=== PATIENT | female | born 1955 | race Caucasian/White ===

== ENCOUNTER 2018-07-30 09:01 | Inpatient (IN) | payer OTHER ==
[~2018-07-30] VITALS: Ht 162.6 cm; Wt 80.4 kg
[~2018-07-30 09:01] MED LIST: DULERA 200 MCG/13 GM INH; MONTELUKAST SOD10 M1 PO; TRAMADOL HCL50 M1 PO
[2018-07-30 11:45] LABS: ABSOLUTE BASOPHIL COUNT 0.2 /CUMM (0.0-0.2); ABSOLUTE EOSINOPHIL COUNT 0 /CUMM (0.0-0.7); ABSOLUTE GRANULOCYTE CT 11.3 /CUMM (1.4-6.5); ABSOLUTE LYMPH COUNT 1.9 /CUMM (1.2-3.4); ABSOLUTE MONOCYTE COUNT 1.1 /CUMM (0.10-0.60); BASOPHIL % 1.4 % (0.0-2.0); EOSINOPHIL % 0.3 % (0-5); GRANULOCYTE % 77.5 % (42.2-75.2); HEMATOCRIT 41.8 % (37-47); MEAN CORPUSCULAR HGB 29.4 PG (27.0-31.0); MEAN CORPUSCULAR VOLUME 84.1 FL (81.0-99.0); MEAN PLATELET VOLUME 8.1 FL (7.4-10.4); PLATELET COUNT 266 /CUMM (130-400); RBC DISTRIBUTION WIDTH 13.3 % (11.5-14.5); RED BLOOD CELL CT 4.97 /CUMM (4.20-5.40); WHITE BLOOD CELL COUNT 14.6 /CUMM (4.8-10.8)
--- NOTE | 2018-07-30 12:27 | ED GI/GU/ABDOMINAL COMPLAINT ---
History of Present Illness General Chief Complaint: Abdominal Pain/Flank Pain Stated Complaint: ABD PAIN X3-4 DAYS Source: patient Exam Limitations: no limitations Vital Signs & Intake/Output Vital Signs & Intake/Output ED Intake and Output 08/02 0000 08/01 1200 Intake Total 820 1120 Output Total 400 Balance 820 720 Intake, IV 200 1000 Intake, Oral 620 120 Number 1 Bowel Movements Output, Urine 400 Patient 177 lb Weight Allergies Coded Allergies: No Known Drug Allergies (11/11/16) Reconcile Medications Budesonide/Formoterol Fumarate (Symbicort 160-4.5 Mcg Inhaler) 160 MCG-4.5 MCG/ ACTUATION HFA.AER.AD 2 PUF INH BID BREATHING PROBLEMS (Reported) Calcium (Elemental-Fr Calcarb) (Calcium) 600 MG CALCIUM (1,500 MG) TABLET 1 TAB PO DAILY SUPPLEMENT (Reported) Cetirizine HCl (Zyrtec) 10 MG TABLET 1 TAB PO DAILY ALLERGIES (Reported) Cholecalciferol (Vitamin D3) 1,000 UNIT TABLET 1 TAB PO DAILY VITAMIN SUPPORT (Reported) Ciprofloxacin HCl (Cipro) 500 MG TABLET 1 TAB PO BID acute diverticulitis Metronidazole (Flagyl) 500 MG TABLET 1 TAB PO BID acute diverticulitis do not drink alcohol while taking this medication Montelukast Sodium 10 MG TABLET 1 TAB PO DAILY ASTHMA (Reported) Triage Note: PT TO ED C/O LOWER ABD PAIN X3 DAYS. STATES THAT IT IS TO HER NAVEL AND WRAPS TO BOTH SIDES. DENIES ANY N/V. DENIES ANY CP/SOB. HAS A HX OF DIVERTICULTIS, BUT DOES NOT FEEL THE SAME SHE STATES. HAS SOME LOWER BACK PAIN, DENIES ANY URINARY S/S Triage Nurses Notes Reviewed? yes ? N Is pt currently ? No Onset: Gradual Duration: day(s): (4), constant, changing over time, continues in ED, getting worse Quality/Severity: sharpness, severe Severity Numbers: 8 Location: generalized abdomen Activities at Onset: none HPI: Patient presents for evaluation of abdominal pain over the past 3-4 days. Patient awoke with pain on Monday and took ibuprofen with some improvement. Beginning last night the patient began experiencing fever or chills and worsening of her abdominal pain. The pain also worsens with coughing and with flatus. Patient denies associated vomiting, diarrhea, dysuria or constipation. Past History Travel History Traveled to [place] past 21 day No Medical History Any Pertinent Medical History? see below for history Neurological: NONE EENT: NONE Cardiovascular: NONE Respiratory: asthma Gastrointestinal: diverticulitis Hepatic: NONE Renal: NONE Musculoskeletal: NONE Psychiatric: NONE Endocrine: NONE Surgical History Surgical History: non-contributory Psychosocial History What is your primary language Tajik Tobacco Use: Never used Family History Hx Contributory? No Review of Systems Review of Systems Constitutional: Reports: no symptoms. EENTM: Reports: no symptoms. Respiratory: Reports: no symptoms. Cardiovascular: Reports: no symptoms. GI: Reports: no symptoms. Genitourinary: Reports: no symptoms. Musculoskeletal: Reports: no symptoms. Skin: Reports: no symptoms. Neurological/Psychological: Reports: no symptoms. Hematologic/Endocrine: Reports: no symptoms. Immunologic/Allergic: Reports: no symptoms. All Other Systems: Reviewed and Negative Physical Exam Physical Exam Gastrointestinal: SEE BELOW Comments: Gen.: Well-nourished, well-developed, no acute respiratory distress. Head: Normocephalic, atraumatic. Eyes: Normal inspection bilaterally Ears: Normal inspection bilaterally Nose: Normal inspection Throat/mouth : Moist mucosa Neck: Supple, full range of motion, no goiter Heart: Regular rate and rhythm, no murmurs rubs or gallops Lungs: Clear to auscultation bilaterally with normal air entry Chest: Nontender Back: Normal range of motion Abdomen: Diffuse abdominal tenderness with brief voluntary guarding but no rebound, normal bowel sounds, soft, with light percussion tenderness the patient seems most symptomatic in the left lower quadrant Extremities: Normal range of motion grossly, equal radial pulses, no cyanosis clubbing or edema Neurologic: Cranial nerves grossly intact, speech is clear Skin: warm and dry Psychiatric: Calm, cooperative, no apparent delusions or hallucinations Core Measures ACS in differential dx? No Sepsis Present: No Sepsis Focused Exam Completed? No Progress Differential Diagnosis: appendicitis, cholecystitis, diverticulitis, pancreatitis, UTI/pyelo Plan of Care: Orders Procedure Date/time Status CBC WITHOUT DIFFERENTIAL 07/31 600 Active BASIC ELECTROLYTES PLUS BUN&CR 07/31 600 Active Nothing by Mouth 07/30 D Active Code Status 07/30 1710 Active URINALYSIS 07/30 941 Complete LIPASE 07/30 941 Complete COMPREHENSIVE METABOLIC PANEL 07/30 941 Complete CBC WITHOUT DIFFERENTIAL 07/30 941 Complete Current Medications Sig/Bairon Start time Last Medication Dose Stop Time Status Admin Ceftriaxone Sodium 2,000 MG DAILY 07/31 1400 UNVr (Rocephin) Loratadine 10 MG DAILY 07/31 0900 UNVr (Claritin) Metronidazole 500 MG IQ8 07/31 0000 UNVr (Flagyl) N/A 1 UNIT (No Carrier) Heparin Sodium 5,000 UNIT Q8 07/30 2200 UNVr (Porcine) Acetaminophen 1,000 MG Q6P PRN 07/30 2100 UNVr (Ofirmev) N/A 1 UNIT (No Carrier) Budesonide/ 2 PUF BID 07/30 2100 UNVr Formoterol Fumarate (Symbicort) Montelukast Sodium 10 MG AT BEDTIME 07/30 2100 UNVr (Singulair) Dextrose/Sodium 1,000 ML Q10H 07/30 1715 UNVr Chloride (D5-Normal Saline) Morphine Sulfate 2 MG Q4-6 PRN PRN 07/30 1715 UNVr (MORPHINE SULFATE) Ondansetron HCl 4 MG Q6P PRN 07/30 1715 UNVr (Zofran) Laboratory Tests 07/30/18 1239: Urine Color YEL, Urine Clarity CLEAR, Urine pH 8.5 H, Ur Specific [place] 1.015 , Urine Protein NEG, Urine Ketones 40 H, Urine Nitrite NEG, Urine Bilirubin NEG , Urine Urobilinogen 1.0, Ur Leukocyte Esterase NEG, Ur Microscopic SEDIMENT EXAMINED, Urine RBC RARE, Urine WBC RARE, Ur Epithelial Cells RARE, Urine Hemoglobin NEG, Urine Glucose NEG 07/30/18 1136: Anion Gap 11, Estimated GFR > 60, BUN/Creatinine Ratio 10.0, Glucose 104 H, Calcium 9.2, Total Bilirubin 1.3, AST 14, ALT 26, Alkaline Phosphatase 148 H, Total Protein 6.6, Albumin 4.1, Globulin 2.5, Albumin/Globulin Ratio 1.6, Lipase 13 L, CBC w Diff NO MAN DIFF REQ, RBC 4.97, MCV 84.1, MCH 29.4, MCHC 35.0, RDW 13.3, MPV 8.1, Gran % 77.5 H, Lymphocytes % 13.1 L, Monocytes % 7.7, Eosinophils % 0.3, Basophils % 1.4, Absolute Granulocytes 11.3 H, Absolute Lymphocytes 1.9, Absolute Monocytes 1.1 H, Absolute Eosinophils 0, Absolute Basophils 0.2 Diagnostic Imaging: Discussed w/RAD: CT Scan. Radiology Impression: PATIENT: AMEE EVANS PRESENT AGE: 62 PATIENT ACCOUNT NO: [id number] : 55 LOCATION: [facility] ORDERING PHYSICIAN: Andry Grubbs MD SERVICE DATE: 07/30/18-1792 EXAM TYPE : CAT - CT ABD & PELVIS W IV CONTRAST EXAMINATION: CT ABDOMEN AND PELVIS WITH CONTRAST CLINICAL INFORMATION: Diffuse abdominal pain and tenderness. Presumptive diagnosis of diverticulitis, appendicitis, cholecystitis, pancreatitis. COMPARISON: None. TECHNIQUE: Multidetector CT volumetric acquisition of the abdomen and pelvis was performed after the administration of 95 and mL of intravenous Optiray 320. The data set was reformatted in the sagittal and coronal planes and reviewed on an independent workstation. DLP: 514.67 mGy-cm. FINDINGS: LOWER CHEST: Bilateral breast implants are partially imaged and are intact. No periimplant fluid collections noted. Subpleural reticular opacities and linear parenchymal opacities are seen in the lung bases bilaterally, consistent with atelectatic changes. LIVER, GALLBLADDER, BILIARY TREE: Liver normal size and attenuation. No focal cystic or solid mass or intra- or extrahepatic ductal dilatation. Hepatic and portal veins patent. Gallbladder partially distended and within normal limits. PANCREAS: Diffusely atrophic with mild diffuse fatty infiltration. No ductal dilatation, mass, or surrounding stranding. SPLEEN: Normal size and appearance. Splenic vein patent. ADRENAL GLANDS AND KIDNEYS: Adrenal glands normal. Kidneys bilaterally symmetric in size and function. No focal mass, hydronephrosis, nephrolithiasis or perinephric stranding. URETERS AND BLADDER: Ureters decompressed and within normal limits. Bladder partially distended and within normal limits. PELVIC ORGANS: Unremarkable. GASTROINTESTINAL TRACT: There is an approximately 10 cm long segment of the mid and distal sigmoid colon, which is abnormally diffusely thickened with surrounding edema and mesenteric fat stranding seen. Several scattered diverticula are seen. There is likely also a contained microperforation of one of the diverticula measuring with small interloop abscess, measuring approximately 2.4 x 1.9 x 1.7 cm. There is associated edema along the right lateral pelvic sidewall, extending into the presacral space. No evidence of distal free air is seen and no evidence of bowel obstruction is noted. There are are multiple descending colonic diverticula are seen and a few scattered diverticula throughout the remainder of the colon. The appendix is not visualized. Small bowel loops are decompressed and unremarkable. ABDOMINAL WALL: There is a small fat-containing umbilical hernia. LYMPHOVASCULAR STRUCTURES: Abdominal aorta normal in caliber. No periaortic collections. No abdominal or pelvic adenopathy. BONES: There is diffuse osteopenia with accentuation of the trabecular markings. Mild convex right lumbar scoliosis is seen. Grade 1 anterolistheses of L4 on L5 is noted. Mild vertebral spondylosis is seen in the mid and lower lumbar spine. Mild facet arthropathy is seen in the lower lumbar spine. IMPRESSION: 1. Findings are consistent with acute segmental diverticulitis with small contained microperforation and interloop abscess formation. Findings are superimposed upon extensive chronic diverticulosis. 2. Atrophic pancreas with diffuse fatty infiltration. 3. Small fat-containing umbilical hernia. DICTATED BY: Dyan Luna MD DATE/TIME DICTATED:07/30/181348 FINANCIAL AID OFFICER:SANTIAGO DATE/TIME TRANSCRIBED:07/30/181348 CONFIDENTIAL, DO NOT COPY WITHOUT APPROPRIATE AUTHORIZATION. <Electronically signed in Other Vendor System> SIGNED BY: Dyan Luna MD 07/30/18 3666 Initial ED EKG: none Comments: 07/30/2018 4:20:58 PM I updated Amee previously on her test results and have treated her with IV fluids IV acetaminophen and Rocephin and Flagyl intravenously as well. I have discussed her case with Dr. Siegel and and paging the surgical PA. Departure Departure Disposition: STILL A PATIENT Condition: Stable Clinical Impression Primary Impression: Perforation of intestine due to diverticulitis of gastrointestinal tract Referrals: Renay VILLARREAL,Marielle Gonzales (PCP/Family) Departure Forms: Customer Survey General Discharge Information Prescriptions: Current Visit Scripts Ciprofloxacin HCl (Cipro) 1 TAB PO BID #20 TAB Metronidazole (Flagyl) 1 TAB PO BID #30 TAB do not drink alcohol while taking this medication OR/GI Note Spoke With: Jovany Siegel DO ED Treatment Decision: AMEE EVANS requires urgent operative management or an emergent procedure that cannot be performed in the Emergency Room setting. Transport To: [facility]
[2018-07-30] MEDS ORDERED: SYMBICORT 16010.2 GM INH (12:58)
[2018-07-30] MEDS ORDERED: ZYRTEC10 M3 PO (12:59)
[2018-07-30] MEDS ORDERED: CALCIUM600 M3 PO (12:59)
[2018-07-30] MEDS ORDERED: VITAMIN D31000 UNI2 PO (13:00)
--- NOTE | 2018-07-30 14:07 | CT SCAN REPORT ---
EXAMINATION: CT ABDOMEN AND PELVIS WITH CONTRAST CLINICAL INFORMATION: Diffuse abdominal pain and tenderness. Presumptive diagnosis of diverticulitis, appendicitis, cholecystitis, pancreatitis. COMPARISON: None. TECHNIQUE: Multidetector CT volumetric acquisition of the abdomen and pelvis was performed after the administration of 95 and mL of intravenous Optiray 320. The data set was reformatted in the sagittal and coronal planes and reviewed on an independent workstation. DLP: 514.67 mGy-cm. FINDINGS: LOWER CHEST: Bilateral breast implants are partially imaged and are intact. No periimplant fluid collections noted. Subpleural reticular opacities and linear parenchymal opacities are seen in the lung bases bilaterally, consistent with atelectatic changes. LIVER, GALLBLADDER, BILIARY TREE: Liver normal size and attenuation. No focal cystic or solid mass or intra-or extrahepatic ductal dilatation. Hepatic and portal veins patent. Gallbladder partially distended and within normal limits. PANCREAS: Diffusely atrophic with mild diffuse fatty infiltration. No ductal dilatation, mass, or surrounding stranding. SPLEEN: Normal size and appearance. Splenic vein patent. ADRENAL GLANDS AND KIDNEYS: Adrenal glands normal. Kidneys bilaterally symmetric in size and function. No focal mass, hydronephrosis, nephrolithiasis or perinephric stranding. URETERS AND BLADDER: Ureters decompressed and within normal limits. Bladder partially distended and within normal limits. PELVIC ORGANS: Unremarkable. GASTROINTESTINAL TRACT: There is an approximately 10 cm long segment of the mid and distal sigmoid colon, which is abnormally diffusely thickened with surrounding edema and mesenteric fat stranding seen. Several scattered diverticula are seen. There is likely also a contained microperforation of one of the diverticula measuring with small interloop abscess, measuring approximately 2.4 x 1.9 x 1.7 cm. There is associated edema along the right lateral pelvic sidewall, extending into the presacral space. No evidence of distal free air is seen and no evidence of bowel obstruction is noted. There are are multiple descending colonic diverticula are seen and a few scattered diverticula throughout the remainder of the colon. The appendix is not visualized. Small bowel loops are decompressed and unremarkable. ABDOMINAL WALL: There is a small fat-containing umbilical hernia. LYMPHOVASCULAR STRUCTURES: Abdominal aorta normal in caliber. No periaortic collections. No abdominal or pelvic adenopathy. BONES: There is diffuse osteopenia with accentuation of the trabecular markings. Mild convex right lumbar scoliosis is seen. Grade 1 anterolistheses of L4 on L5 is noted. Mild vertebral spondylosis is seen in the mid and lower lumbar spine. Mild facet arthropathy is seen in the lower lumbar spine. IMPRESSION: 1. Findings are consistent with acute segmental diverticulitis with small contained microperforation and interloop abscess formation. Findings are superimposed upon extensive chronic diverticulosis. 2. Atrophic pancreas with diffuse fatty infiltration. 3. Small fat-containing umbilical hernia.
--- NOTE | 2018-07-30 17:29 | Admission Core Measures ---
Acute Coronary Syndrome (CM) ACS Core Measures Acute Coronary Syndrome Diagnosis No Congestive Heart Failure (NEW) CHF Core Measures Congestive Heart Failure Diagnosis No Cerebrovascular Accident CVA Core Measures CVA/TIA Diagnosis No Venous Thromboembolism VTE Core Justin (View Protocol) VTE Risk Factors Surgery No Mechanical VTE Prophylaxis d/t N/A MechProphylax Ordered No VTE Pharm Prophylaxis d/t NA PharmProphylax ordered Problem List As ranked by this Provider includes Assessment & Plan 1. Diverticulitis 2. Asthma HOME MEDS Home Med List Budesonide/Formoterol Fumarate (Symbicort 160-4.5 Mcg Inhaler) 160 MCG-4.5 MCG/ ACTUATION HFA.AER.AD 2 PUF INH BID BREATHING PROBLEMS (Reported) Calcium (Elemental-Fr Calcarb) (Calcium) 600 MG CALCIUM (1,500 MG) TABLET 1 TAB PO DAILY SUPPLEMENT (Reported) Cetirizine HCl (Zyrtec) 10 MG TABLET 1 TAB PO DAILY ALLERGIES (Reported) Cholecalciferol (Vitamin D3) 1,000 UNIT TABLET 1 TAB PO DAILY VITAMIN SUPPORT (Reported) Montelukast Sodium 10 MG TABLET 1 TAB PO DAILY ASTHMA (Reported)
--- NOTE | 2018-07-30 17:39 | History & Physical Pre-Op ---
Erin Valera 07/30/18 1810: General Information and HPI MD Statement: I have seen and personally examined KACIE EVANS and documented this H&P. The patient is a 62 year old F who presented with a patient stated chief complaint of [abdominal pain]. Source of Information: patient History of Present Illness: This 62 year old female with history of asthma presents with her second episode of acute sigmoid diverticulitis. She reports her pain started on monday, which was 3 days ago. She has had associated chills and sweats. She was febrile in the ED today over 101. Currently she denies nausea and vomiting. No dizziness. No shortness of breath. No chest pains. Voiding without difficulty. Allergies/Medications Allergies: Coded Allergies: No Known Drug Allergies (11/11/16) Home Med list Budesonide/Formoterol Fumarate (Symbicort 160-4.5 Mcg Inhaler) 160 MCG-4.5 MCG/ ACTUATION HFA.AER.AD 2 PUF INH BID BREATHING PROBLEMS (Reported) Calcium (Elemental-Fr Calcarb) (Calcium) 600 MG CALCIUM (1,500 MG) TABLET 1 TAB PO DAILY SUPPLEMENT (Reported) Cetirizine HCl (Zyrtec) 10 MG TABLET 1 TAB PO DAILY ALLERGIES (Reported) Cholecalciferol (Vitamin D3) 1,000 UNIT TABLET 1 TAB PO DAILY VITAMIN SUPPORT (Reported) Montelukast Sodium 10 MG TABLET 1 TAB PO DAILY ASTHMA (Reported) Past History Medical History Neurological: NONE EENT: NONE Cardiovascular: NONE Respiratory: asthma Gastrointestinal: diverticulitis Hepatic: NONE Renal: NONE Musculoskeletal: NONE Psychiatric: NONE Endocrine: NONE Surgical History Pertinent Surgical History: tubal ligation, laparoscopic ovarian cyst r/o ectopic Past Family/Social History Family History Relations & Conditions if any MOTHER FH: COPD (chronic obstructive pulmonary disease) FATHER FH: diverticulitis FHx: prostate cancer Psychosocial History Where Do You Live? Home Who Do You Live With? spouse Smoking Status: Never Smoked ETOH Use: occasional use Illicit Drug Use: denies illicit drug use Employment History Employment: Retired Profession/Employer: software security consultant Review of Systems Review of Systems: admits: abdominal pain, chills and sweats, headache, radiating back pain denies: dizziness, shortness of breath, chest pain, dysuria Exam & Diagnostic Data Last 24 Hrs of Vital Signs/I&O Vital Signs Date Time Temp Pulse Resp B/P B/P Pulse O2 O2 Flow FiO2 Mean Ox Delivery Rate 07/30 1357 99.3 94 16 138/80 98 Room Air 07/30 1355 99.3 07/30 1315 101.0 07/30 1212 101.6 97 16 140/81 98 Room Air 07/30 0926 100.0 98 16 124/73 94 Room Air Intake & Output 07/30 1600 07/30 0800 07/30 0000 Intake Total 0 Output Total Balance 0 Intake, Oral 0 Physical Exam: General - alert & oriented x 3. comfortable. no acute distress. Skin - warm, dry, and smooth. no rashes noted. Lungs - clear bilaterally. no w/r/r. Cardiac - s1s2. reg. Abdomen - obese. softly distended. no bowel sounds appreciated. tenderness localized to mid left lower and central abdomen. not diffusely tender and without signs of diffuse peritonitis. Extremities - warm bilaterally. no c/c/e. calves soft and nontender b/l. Neuro - speech and coordinated. no focal deficits. Last 24 Hrs of Labs/Guzman: Laboratory Tests 07/30/18 1239: Urine Color YEL, Urine Clarity CLEAR, Urine pH 8.5 H, Ur Specific [place] 1.015 , Urine Protein NEG, Urine Ketones 40 H, Urine Nitrite NEG, Urine Bilirubin NEG , Urine Urobilinogen 1.0, Ur Leukocyte Esterase NEG, Ur Microscopic SEDIMENT EXAMINED, Urine RBC RARE, Urine WBC RARE, Ur Epithelial Cells RARE, Urine Hemoglobin NEG, Urine Glucose NEG 07/30/18 1136: Anion Gap 11, Estimated GFR > 60, BUN/Creatinine Ratio 10.0, Glucose 104 H, Calcium 9.2, Total Bilirubin 1.3, AST 14, ALT 26, Alkaline Phosphatase 148 H, Total Protein 6.6, Albumin 4.1, Globulin 2.5, Albumin/Globulin Ratio 1.6, Lipase 13 L, CBC w Diff NO MAN DIFF REQ, RBC 4.97, MCV 84.1, MCH 29.4, MCHC 35.0, RDW 13.3, MPV 8.1, Gran % 77.5 H, Lymphocytes % 13.1 L, Monocytes % 7.7, Eosinophils % 0.3, Basophils % 1.4, Absolute Granulocytes 11.3 H, Absolute Lymphocytes 1.9, Absolute Monocytes 1.1 H, Absolute Eosinophils 0, Absolute Basophils 0.2 Diagnostic Data Other Results EXAM TYPE: CAT - CT ABD & PELVIS W IV CONTRAST EXAMINATION: CT ABDOMEN AND PELVIS WITH CONTRAST CLINICAL INFORMATION: Diffuse abdominal pain and tenderness. Presumptive diagnosis of diverticulitis, appendicitis, cholecystitis, pancreatitis. COMPARISON: None. TECHNIQUE: Multidetector CT volumetric acquisition of the abdomen and pelvis was performed after the administration of 95 and mL of intravenous Optiray 320. The data set was reformatted in the sagittal and coronal planes and reviewed on an independent workstation. DLP: 514.67 mGy-cm. FINDINGS: LOWER CHEST: Bilateral breast implants are partially imaged and are intact. No periimplant fluid collections noted. Subpleural reticular opacities and linear parenchymal opacities are seen in the lung bases bilaterally, consistent with atelectatic changes. LIVER, GALLBLADDER, BILIARY TREE: Liver normal size and attenuation. No focal cystic or solid mass or intra-or extrahepatic ductal dilatation. Hepatic and portal veins patent. Gallbladder partially distended and within normal limits. PANCREAS: Diffusely atrophic with mild diffuse fatty infiltration. No ductal dilatation, mass, or surrounding stranding. SPLEEN: Normal size and appearance. Splenic vein patent. ADRENAL GLANDS AND KIDNEYS: Adrenal glands normal. Kidneys bilaterally symmetric in size and function. No focal mass, hydronephrosis, nephrolithiasis or perinephric stranding. URETERS AND BLADDER: Ureters decompressed and within normal limits. Bladder partially distended and within normal limits. PELVIC ORGANS: Unremarkable. GASTROINTESTINAL TRACT: There is an approximately 10 cm long segment of the mid and distal sigmoid colon, which is abnormally diffusely thickened with surrounding edema and mesenteric fat stranding seen. Several scattered diverticula are seen. There is likely also a contained microperforation of one of the diverticula measuring with small interloop abscess, measuring approximately 2.4 x 1.9 x 1.7 cm. There is associated edema along the right lateral pelvic sidewall, extending into the presacral space. No evidence of distal free air is seen and no evidence of bowel obstruction is noted. There are are multiple descending colonic diverticula are seen and a few scattered diverticula throughout the remainder of the colon. The appendix is not visualized. Small bowel loops are decompressed and unremarkable. ABDOMINAL WALL: There is a small fat-containing umbilical hernia. LYMPHOVASCULAR STRUCTURES: Abdominal aorta normal in caliber. No periaortic collections. No abdominal or pelvic adenopathy. BONES: There is diffuse osteopenia with accentuation of the trabecular markings. Mild convex right lumbar scoliosis is seen. Grade 1 anterolistheses of L4 on L5 is noted. Mild vertebral spondylosis is seen in the mid and lower lumbar spine. Mild facet arthropathy is seen in the lower lumbar spine. IMPRESSION: 1. Findings are consistent with acute segmental diverticulitis with small contained microperforation and interloop abscess formation. Findings are superimposed upon extensive chronic diverticulosis. 2. Atrophic pancreas with diffuse fatty infiltration. 3. Small fat-containing umbilical hernia. DICTATED BY: Jeremy VILLARREAL,Dyan Hand DATE/TIME DICTATED:07/30/181348 [employer] HCM DEVELOPER:SANTIAGO DATE/TIME TRANSCRIBED:07/30/181348 Assessment/Plan Assessment/Plan: This 62 year old female wtih history of asthma presents with her second episode of acute sigmoid diverticulitis, this time with associated abscess currently npo / ivf iv rocephin / flagyl (initiated in ED today) serial labs and exams hep sc - dvt ppx home meds ordered may consider re-imaging in a few days if not improving clinically d/w As Ranked By This Provider Problem List: 1. Diverticulitis 2. Asthma Copies To: Renay VILLARREAL,Marielle Siegel DOJovany 07/31/18 1637: Attending MD Review Statement Attending Statement Attending MD Statement: examined this patient, discuss w/resident/PA/INSIDE SALES CONSULTANT, agreed w/resident/PA/INSIDE SALES CONSULTANT, discussed with family, reviewed EMR data (avail), reviewed images Attending Assessment/Plan: Patient seen and examined, agree with above. Abdominal pain for ~2-3 days that got more severe. H/O Diverticulitis but this time pain was different. Last colonscopy was ~3 years ago. Febrile VSS. Abd-softly distended, obese, some lower abdominal discomfort, no peritoneal signs (pain improved from yesterday). CT scan shows diverticulitis with ?microperf and a small abscess. NPO/IVF, IV Abx, serial abdominal exams. Will monitor for decrease in WBC and pain improvement.
[2018-07-30 18:42] VITALS: BP 117/66
[2018-07-30 21:14] VITALS: BP 110/64
--- NOTE | 2018-07-31 06:12 | PN- Student ---
Rossy Barboza 07/31/18 0606: Subjective Subjective: Pt has pain 3/10 in abdomen, denies fever/chills/cp/SOB. Has not yet received pain meds. Has passed flatus, has voided, no BM. Objective Objective: Physical Exam: Gen: sleeping when entering room, NAD HEENT: no scleral icterus Cardiac: S1S2, RRR Lungs: CTA BL Abdomen: +BS, +rebound tenderness, distended, tenderness throughout lower abdomen and worst in RLQ. RUQ and LUQ tympanitic to percussion. Ext: alps present, no edema, DP/PT pulses 2+ BL Exam & Diagnostic Data Last 24 Hrs of Vital Signs/I&O Vital Signs Date Time Temp Pulse Resp B/P B/P Pulse O2 O2 Flow FiO2 Mean Ox Delivery Rate 07/30 2114 98.3 84 18 110/64 95 Room Air 07/30 1842 99.7 84 18 117/66 93 Room Air 07/30 1357 99.3 94 16 138/80 98 Room Air 07/30 1355 99.3 07/30 1315 101.0 07/30 1212 101.6 97 16 140/81 98 Room Air 07/30 0926 100.0 98 16 124/73 94 Room Air Intake & Output 07/31 0800 07/31 0000 07/30 1600 Intake Total 800 0 Output Total 500 Balance 800 -500 0 Intake, IV 800 Intake, Oral 0 0 Output, Urine 500 Patient 177 lb Weight Weight Bed scale Measurement Method Assessment/Plan Plan: A-Pt is a 62 y/o F w/ PMH of diverticulitis, chronic asthma, mixed sleep apnea, hyperlipidemia, and ovarian cyst w/ acute onset of abdominal pain, exam features , labs, and imaging findings suggestive of acute episode of diverticulitis w/ abscess. P- NPO Abx (ceftriaxone/metronidazole) IVF acetaminophen IV PRN for pain alps and heparin SC for DVT prophylaxis am labs serial abdominal exams observe for improvement or worsening of condition Nely Nunes 07/31/18 0922: Subjective Subjective: pt notes that pain has decreased over last 24hr, still no appetite. No dysurea but notes that urine has been dark in color. Denies fevers. ambulating Objective Objective: abd exam- tender throughout with +rosving sign, tender on left side when palpating the right side. no rebound tenderness. some gaurding Results Results: Laboratory Tests 07/31/18 0635: Sodium Pending, Potassium Pending, Chloride Pending, Carbon Dioxide Pending, Anion Gap Pending, BUN Pending, Creatinine Pending, BUN/Creatinine Ratio Pending , PT Pending, INR Pending, CBC w Diff Pending, WBC Pending, RBC Pending, Hgb Pending, Hct Pending, MCV Pending, MCH Pending, MCHC Pending, RDW Pending, Plt Count Pending, MPV Pending 07/30/18 1239: Urine Color YEL, Urine Clarity CLEAR, Urine pH 8.5 H, Ur Specific [place] 1.015 , Urine Protein NEG, Urine Ketones 40 H, Urine Nitrite NEG, Urine Bilirubin NEG , Urine Urobilinogen 1.0, Ur Leukocyte Esterase NEG, Ur Microscopic SEDIMENT EXAMINED, Urine RBC RARE, Urine WBC RARE, Ur Epithelial Cells RARE, Urine Hemoglobin NEG, Urine Glucose NEG 07/30/18 1136: Anion Gap 11, Estimated GFR > 60, BUN/Creatinine Ratio 10.0, Glucose 104 H, Calcium 9.2, Total Bilirubin 1.3, AST 14, ALT 26, Alkaline Phosphatase 148 H, Total Protein 6.6, Albumin 4.1, Globulin 2.5, Albumin/Globulin Ratio 1.6, Lipase 13 L, CBC w Diff NO MAN DIFF REQ, RBC 4.97, MCV 84.1, MCH 29.4, MCHC 35.0, RDW 13.3, MPV 8.1, Gran % 77.5 H, Lymphocytes % 13.1 L, Monocytes % 7.7, Eosinophils % 0.3, Basophils % 1.4, Absolute Granulocytes 11.3 H, Absolute Lymphocytes 1.9, Absolute Monocytes 1.1 H, Absolute Eosinophils 0, Absolute Basophils 0.2 Exam & Diagnostic Data Last 24 Hrs of Vital Signs/I&O Vital Signs Date Time Temp Pulse Resp B/P B/P Pulse O2 O2 Flow FiO2 Mean Ox Delivery Rate 07/31 0853 Room Air 07/31 0621 98.3 80 18 117/61 92 07/30 2114 98.3 84 18 110/64 95 Room Air 07/30 1842 99.7 84 18 117/66 93 Room Air 07/30 1357 99.3 94 16 138/80 98 Room Air 07/30 1355 99.3 07/30 1315 101.0 07/30 1212 101.6 97 16 140/81 98 Room Air 07/30 0926 100.0 98 16 124/73 94 Room Air Intake & Output 07/31 1600 07/31 0800 07/31 0000 Intake Total 800 Output Total 500 Balance 800 -500 Intake, IV 800 Intake, Oral 0 Output, Urine 500 Patient 177 lb Weight Weight Bed scale Measurement Method Last 24 Hrs of Labs/Guzman: Laboratory Tests 07/31/18 0635: Sodium Pending, Potassium Pending, Chloride Pending, Carbon Dioxide Pending, Anion Gap Pending, BUN Pending, Creatinine Pending, BUN/Creatinine Ratio Pending , PT Pending, INR Pending, CBC w Diff Pending, WBC Pending, RBC Pending, Hgb Pending, Hct Pending, MCV Pending, MCH Pending, MCHC Pending, RDW Pending, Plt Count Pending, MPV Pending 07/30/18 1239: Urine Color YEL, Urine Clarity CLEAR, Urine pH 8.5 H, Ur Specific [place] 1.015 , Urine Protein NEG, Urine Ketones 40 H, Urine Nitrite NEG, Urine Bilirubin NEG , Urine Urobilinogen 1.0, Ur Leukocyte Esterase NEG, Ur Microscopic SEDIMENT EXAMINED, Urine RBC RARE, Urine WBC RARE, Ur Epithelial Cells RARE, Urine Hemoglobin NEG, Urine Glucose NEG 07/30/18 1136: Anion Gap 11, Estimated GFR > 60, BUN/Creatinine Ratio 10.0, Glucose 104 H, Calcium 9.2, Total Bilirubin 1.3, AST 14, ALT 26, Alkaline Phosphatase 148 H, Total Protein 6.6, Albumin 4.1, Globulin 2.5, Albumin/Globulin Ratio 1.6, Lipase 13 L, CBC w Diff NO MAN DIFF REQ, RBC 4.97, MCV 84.1, MCH 29.4, MCHC 35.0, RDW 13.3, MPV 8.1, Gran % 77.5 H, Lymphocytes % 13.1 L, Monocytes % 7.7, Eosinophils % 0.3, Basophils % 1.4, Absolute Granulocytes 11.3 H, Absolute Lymphocytes 1.9, Absolute Monocytes 1.1 H, Absolute Eosinophils 0, Absolute Basophils 0.2 Assessment/Plan Plan: FU AM labs will increase IVF to 125cc/hr, may consider small bolus if low urine output today Cont IV ABX encourage ambulation may consider IR drainage of abscess if abd exam doesnt improve will give trial of clear liquids when clinically improves and appetite returns Jovany Siegel DO 07/31/18 1642: Attending MD Review Statement Attending Sign Off Attending Cosign Statement: I have: examined this patient, reviewed aval EMR data, personally reviewd images, discussd w/resident/PA/[employer], discussed mgmt plan w/pt, agreed w/resident/ PA/[employer].
[2018-07-31 06:21] VITALS: BP 117/61
[2018-07-31 09:52] LABS: PT 14.1 SEC (9.4-12.5)
[2018-07-31 10:05] LABS: ABSOLUTE BASOPHIL COUNT 0 /CUMM (0.0-0.2); ABSOLUTE EOSINOPHIL COUNT 0.1 /CUMM (0.0-0.7); ABSOLUTE GRANULOCYTE CT 6.5 /CUMM (1.4-6.5); ABSOLUTE LYMPH COUNT 2.1 /CUMM (1.2-3.4); ABSOLUTE MONOCYTE COUNT 0.8 /CUMM (0.10-0.60); BASOPHIL % 0.4 % (0.0-2.0); EOSINOPHIL % 0.8 % (0-5); GRANULOCYTE % 68.6 % (42.2-75.2); MEAN CORPUSCULAR HGB 29.2 PG (27.0-31.0); MEAN CORPUSCULAR HGB CONC 34.3 G/DL (33.0-37.0); MEAN PLATELET VOLUME 8.5 FL (7.4-10.4); PLATELET COUNT 245 /CUMM (130-400); RBC DISTRIBUTION WIDTH 13.6 % (11.5-14.5); RED BLOOD CELL CT 4.12 /CUMM (4.20-5.40); WHITE BLOOD CELL COUNT 9.5 /CUMM (4.8-10.8)
[2018-07-31 10:16] LABS: HEMATOCRIT 35.1 % (37-47)
[2018-07-31 16:00] VITALS: BP 124/60
[2018-07-31 22:43] VITALS: BP 131/82
--- NOTE | 2018-08-01 05:58 | PN- Student ---
Rossy Barboza 08/01/18 0549: Subjective Subjective: Pt slept well last night and feels better than yesterday. Pt denies abdominal pain/fever/chills/cp/SOB/leg swelling. Pt has passed flatus, voided, and had BM yesterday. BM described as normal, no blood. Pt currently on clear liquids, is tolerating PO diet well, and is ambulating independently. Objective Objective: Physical Exam: Gen: resting in bed in NAD HEENT: no scleral icterus Cardiac: S1S2, RRR Lungs: CTA BL Abdomen: +BS, soft, non-distended, tender in umbilical region only w/ no rebound tenderness and no guarding. RUQ and LUQ tympanitic to percussion. Ext: alps present, no edema, DP/PT pulses 2+ BL Exam & Diagnostic Data Last 24 Hrs of Vital Signs/I&O Vital Signs Date Time Temp Pulse Resp B/P B/P Pulse O2 O2 Flow FiO2 Mean Ox Delivery Rate 07/31 2243 98.3 83 20 131/82 95 Room Air 07/31 1600 97.8 82 18 124/60 92 Room Air 07/31 0853 Room Air 07/31 0621 98.3 80 18 117/61 92 Intake & Output 08/01 0800 08/01 0000 07/31 1600 Intake Total 375 1160 Output Total 900 Balance 375 260 Intake, IV 375 800 Intake, Oral 360 Number 1 Bowel Movements Output, Urine 900 Assessment/Plan Assessment: A-Pt is a 62 y/o F w/ PMH of diverticulitis, chronic asthma, mixed sleep apnea, hyperlipidemia, and ovarian cyst w/ acute onset of abdominal pain, exam features , labs, and imaging findings suggestive of acute episode of diverticulitis w/ abscess that is now resolving. P- Clear liquids diet - recommend advancing diet Abx (ceftriaxone/metronidazole) PO fluids acetaminophen PO PRN for pain alps and heparin SC for DVT prophylaxis am labs serial abdominal exams observe for improvement or worsening of condition consider discharge Erin Valera 08/01/18 0716: Exam & Diagnostic Data Last 24 Hrs of Vital Signs/I&O Vital Signs Date Time Temp Pulse Resp B/P B/P Pulse O2 O2 Flow FiO2 Mean Ox Delivery Rate 07/31 2243 98.3 83 20 131/82 95 Room Air 07/31 1600 97.8 82 18 124/60 92 Room Air 07/31 0853 Room Air Intake & Output 08/01 0800 08/01 0000 07/31 1600 Intake Total 3293 851 1634 Output Total 400 900 Balance 720 375 260 Intake, IV 1000 375 800 Intake, Oral 120 360 Number 1 Bowel Movements Output, Urine 400 900 Last 24 Hrs of Labs/Guzman: see labs Assessment/Plan Assessment: agree with above note will advance to low residue diet continue antibiotics for acute diverticulitis nutrition consult to review dietary modifications d/c planning will d/w
[2018-08-01 07:03] VITALS: BP 131/75
--- NOTE | 2018-08-01 07:23 | Patient Discharge Instructions ---
Discharge Instructions General Discharge Information You were seen/treated for: recurrent acute diverticulitis You had these procedures: antibiotics, bowel rest Diet Continue normal diet: No Recommended Diet: Low Residue Additional DIET Information: low fiber diet for several weeks then advance to high fiber diet Activity Full Activity/No Limits: Yes Activity Self Limited: Yes Acute Coronary Syndrome Inclusion Criteria At DC or during hospital stay patient has or had the following: ACS DIAGNOSIS No Discharge Core Measures Meds if any: Prescribed or Continued at Discharge Meds if any: NOT Prescribed or Continued at Discharge Congestive Heart Failure Inclusion Criteria At DC or during hospital stay patient has or had the following: CHF DIAGNOSIS No Discharge Core Measures Meds if any: Prescribed or Continued at Discharge Meds if any: NOT Prescribed or Continued at Discharge Cerebrovascular accident Inclusion Criteria At DC or during hospital stay patient has or had the following: CVA/TIA Diagnosis No Discharge Core Measures Meds if any: Prescribed or Continued at Discharge Meds if any: NOT Prescribed or Continued at Discharge Venous thromboembolism Inclusion Criteria VTE Diagnosis No VTE Type NONE VTE Confirmed by (Test) NONE Discharge Core Measures - Per Current guidelines, there needs to be overlap - treatment for the first 5 days of Warfarin therapy. - If discharged on Warfarin prior to 5 days of - overlap therapy, the patient will need to be - assessed for post discharge needs including - *Post discharge parental anticoagulation - *Warfarin and/or parental anticoagulation education - *Follow up date to check INR post discharge At least 5 days overlap therapy as Inpatient No Meds if any: Prescribed or Continued at Discharge Note: Overlap Therapy is Warfarin and Anticoagulant Meds if any: NOT Prescribed or Continued at Discharge
[2018-08-01] MEDS ORDERED: FLAGYL500 MG PO (07:25)
[2018-08-01] MEDS ORDERED: CIPRO500 M1 PO (07:25)
--- NOTE | 2018-08-01 07:26 | Surg Short-stay <48hrs Dis Sum ---
Visit Information Visit Dates Admission Date: 07/30/18 Discharge Date: 08/01/18 Surgical Short Stay DC Summary Admission Diagnosis: acute diverticulitis, recurrent Final Diagnosis: acute diverticulitis, recurrent Procedure(s): bowel rest, antibiotics Summary/Significant Findings: Presented to the ED on 07/30/18 with acute abdominal pain, and CT scan findings of acute segmental diverticulitis with small contained microperforation and interloop abscess formation. She was admitted to , started on iv rocephin and flagyl, and was treated with bowel rest. Her diet was advanced slowly as tolerated to a low residue diet. Nutrition consult obtained to review dietary modifications. Transitioned to oral cipro and flagyl upon discharge, to continue for 10 days. Condition at Discharge: stable Discharge Disposition: home or self care Discharge instructions provided to patient/family: Yes Post discharge follow-up plan: follow up with in 1-2 weeks continue low fiber diet as instructed, to transition to high fiber in 4-6 weeks as tolerated Copies to: Renay VILLARREAL,Marielle Gonzales
[2018-08-01 14:40] VITALS: BP 135/84
== END 2018-08-01 15:45 | DRG 392 ==
LOC: ERH 09:01 → 2NB 17:18 → ERHI 17:18 → ENRESERV 17:53 → ENTRNSPT 18:16 → 2NB 18:38 → EDTRNSPTSTS 18:45 → CMPTRNSPT 19:13 → ENTRNSPT 08-01 15:32 → EDTRNSPT 08-01 15:33 → EDTRNSPTSTS 08-01 15:33 → CMPTRNSPT 08-01 15:34 → 2NB 08-01 15:45
PROVIDERS: Physician Assistant; Physician Assistant Medical
DX: K57.20 Diverticulitis of large intestine with perforation and abscess without bleeding (principal); J45.909 Unspecified asthma, uncomplicated; G47.30 Sleep apnea, unspecified; E78.5 Hyperlipidemia, unspecified; N83.209 Unspecified ovarian cyst, unspecified side; Z79.51 Long term (current) use of inhaled steroids; Z98.51 Tubal ligation status
CPT/HCPCS: 2NBSP; 36415; 74177; 81001; 82436; J0131; J0696; J1644; J3490; J7042